=== PATIENT | female | born 1960 | race Caucasian/White ===

== ENCOUNTER 2018-11-09 09:36 | Emergency (ER) | payer SELFPAY ==
[~2018-11-09] VITALS: Ht 167.6 cm; Wt 87.5 kg
--- NOTE | 2018-11-09 11:01 | Diagnostic Imaging Report ---
Examination: CT BRAIN WITHOUT CONTRAST History:Fall with head injury Comparison studies:None Technique: Axial images were obtained from the skull base to the vertex. Coronal and sagittal images reconstructed from the axial data. Dose modulation, iterative reconstruction, and/or weight based adjustment of the mA/kV was utilized to reduce the radiation dose to as low as reasonably achievable. Intravenous contrast: None Findings: Scalp: Large right and midline posterior parietal vertex scalp hematoma. Bones: No fractures, blastic or lytic lesions. Brain sulci: Appropriate for age. Ventricles: Normal in size and configuration. No hydrocephalus. Extra-axial space: No abnormalities. Parenchyma: No abnormal densities. No masses, hemorrhage, or acute or chronic cortical based vascular insults.. Sellar/suprasellar region: No abnormalities. Craniocervical junction: Patent foramen magnum. No Chiari one malformation. Incidental findings: None. Impression: 1. Large right and midline posterior parietal vertex scalp hematoma. No associated radiopaque foreign body or calvarial fracture. 2. No acute intracranial abnormalities, specifically, no intraparenchymal or extra-axial hemorrhage. Signed by: Dr. Megan Hernandez M.D. on 11/09/2018 10:58 AM
--- NOTE | 2018-11-09 11:03 | Diagnostic Imaging Report ---
Examination: CT CERVICAL SPINE WITHOUT CONTRAST HISTORY:Neck pain. COMPARISON:None. TECHNIQUE: Multidetector helical axial images were obtained without contrast from the foramen magnum to T1. Coronal and sagittal reformatted images were done. Bone and soft tissue windows were evaluated. Dose modulation, iterative reconstruction, and/or weight based adjustment of the mA/kV was utilized to reduce the radiation dose to as low as reasonably achievable. FINDINGS: Alignment:Normal alignment and lordosis. Vertebrae: Normal height and density. No acute fracture, infection or neoplasm. Disc space heights: Normal height. Caliber of spinal canal: Developmentally normal. Posterior fossa and craniocervical junction: Foramen magnum patent. No Chiari 1 malformation. Soft tissues: Absent thyroid gland presumably from prior surgery. Degenerative changes: No disc bulge/ herniation or foraminal or canal stenosis. Visualized lung apices: There is groundglass attenuation in the partially visualized left lung apex. No abnormalities on the right. IMPRESSION: No acute abnormalities. Signed by: Dr. Megan Hernandez M.D. on 11/09/2018 11:00 AM
[2018-11-09 12:07] VITALS: BP 141/104
== END 2018-11-09 12:29 | disposition home or self-care (01) ==
LOC: ER 09:36
DX: S00.83XA Contusion of other part of head, initial encounter (principal); S00.01XA Abrasion of scalp, initial encounter; W10.8XXA Fall (on) (from) other stairs and steps, initial encounter; Y92.488 Other paved roadways as the place of occurrence of the external cause; I10 Essential (primary) hypertension; E03.9 Hypothyroidism, unspecified
CPT/HCPCS: 70450; 72125; 99284

== ENCOUNTER 2018-11-28 18:39 | Observation (INO) | payer SELFPAY ==
[~2018-11-28] VITALS: Ht 162.6 cm; Wt 79.5 kg
--- OUTSIDE RECORDS SUMMARY | 2018-11-28 18:42 | XMS REPORT ---
Author Author [facility] Address Unknown Phone Unavailable Care Team Providers Care Put In Beat Adjuster Name Role Phone Johny STEPHENS Unavailable Unavailable Problems This patient has no known problems. Allergies, Adverse Reactions, Alerts This patient has no known allergies or adverse reactions. Medications This patient has no known medications. Results Test Description Test Time Test Comments Text Results Atomic Results Result Comments CT CERVICAL SPINE WO 2018-11-09 10:58:00 [place] [address] Patient Name: ELIE BECK MR #: [id number] : 1960 Age/Sex: 58/F Req #: [id number] Adm Physician: Ordered by: ESTRELLITA STEPHENS MD Report #: [id number] Location: ER Room/Bed: Procedure: [id number] CT/CT CERVICAL SPINE WO Exam Date: 11/09/18 Exam Time: 1000 REPORT STATUS: Signed Examination: CT CERVICAL SPINE WITHOUT CONTRAST HI STORY:Neck pain. COMPARISON:None. TECHNIQUE: Multidetector helical axial images were obtained without contrast from the foramen magnum to T1. Coronal and sagittal reformatted images were done. Bone and soft tissue windows were evaluated. Dose modulation, iterative reconstruction, and/or weight based adjustment of the mA/kV was utilized to reduce the radiation dose to as low as reasonably achievable. FINDINGS: Alignment:Normal alignment and lordosis. Vertebrae: Normal height and density. No acute fracture, infection or neoplasm. Disc space heights: Normal height. Caliber of spinal canal: Developmentally normal. Posterior fossa and craniocervical junction: Foramen magnum patent. No Chiari 1 malformation. Soft tissues: Absent thyroid gland presumably from prior surgery. Degenerative changes: No disc bulge/ herniation or foraminal or canal stenosis. Visualized lung apices: There is groundglass attenuation in the partially visualized left lung apex. No abnormalities on the right. IMPRESSION: No acute abnormalities. Signed by: Dr. Megan Yepez M.D. on 11/09/2018 11:00 AM Dictated By: MEGAN CARTAGENA MD 1100 Transcribed By: SHEREE on 11/09/18 1100 COPY TO: ESTRELLITA STEPHENS MD CT BRAIN WO 2018-11-09 10:53:00 [place] [address] Patient Name: LEIE BECK MR #: [id number] : 1960 Age/Sex: 58/F Req #: [id number] Adm Physician: Ordered by: ESTRELLITA STEPHENS MD Report #: [id number] Location: ER Room/Bed: Procedure: [id number] CT/CT BRAIN WO Exam Date: 11/09/18 Exam Time: 1000 REPORT STATUS: Signed Examination: CT BRAIN WITHOUT CONTRAST History:Fall with head injury Comparison studies:None Technique: Axial images were obtained from the skull base to the vertex. Coronal and sagittal images reconstructed from the axial data. Dose modulation, iterative reconstruction, and/or weight based adjustment of the mA/kV was utilized to reduce the radiation dose to as low as reasonably achievable. Intravenous contrast: None Findings: Scalp: Large right and midline posterior parietal vertex scalp hematoma. Bones: No fractures, blastic or lytic lesions. Brain sulci: Appropriate for age. Ventricles: Normal in size and configurat ion. No hydrocephalus. Extra-axial space: No abnormalities. Parenchyma: No abnormal densities. No masses, hemorrhage, or acute or chronic cortical based vascular insults.. Sellar/suprasellar region: No abnormalities. Craniocervical junction: Patent foramen magnum. No Chiari one malformation. Incidental findings: None. Impression: 1. Large right and midline posterior parietal vertex scalp hematoma. No associated radiopaque foreign body or calvarial fracture. 2. No acute intracranial abnormalities, specifically, no intraparenchymal or extra-axial hemorrhage. Signed by: Dr. Megan Yepez M.D. on 11/09/2018 10:58 AM Dictated By: MEGAN CARTAGENA MD 1058 Transcribed By: SHEREE on 11/09/18 1058 COPY TO: ESTRELLITA STEPHENS MD
--- NOTE | 2018-11-28 19:00 | NUR ---
REPORT AND WALKING ROUNDS COMPLETED WITH ANI MORALES
[2018-11-28 19:26] LABS: BASOPHILS % 0.4 % (0.0-1.0); EOSINOPHILS # (AUTO) 0.1 (0.0-0.4); EOSINOPHILS % 2.4 % (0.0-6.0); HEMATOCRIT 33.3 % (34.2-44.1); HEMOGLOBIN 10.9 g/dL (12.0-16.0); LYMPHOCYTES # (AUTO) 1.4 (1.0-3.2); LYMPHOCYTES % 27.3 % (18.0-39.1); MEAN CORPUSCULAR HEMOGLOBIN 32.4 pg (28-32); MEAN CORPUSCULAR HGB CONC 32.7 g/dL (31-35); MEAN CORPUSCULAR VOLUME 99.1 fL (81-99); MONOCYTES # (AUTO) 0.2 (0.2-0.8); MONOCYTES % 4.6 % (4.4-11.3); NEUTROPHILS # (AUTO) 3.2 (2.1-6.9); NEUTROPHILS % 65.1 % (38.7-80.0); PLATELET COUNT 208 x10e3/uL (140-360); RED BLOOD COUNT 3.36 x10e6/uL (3.6-5.1); RED CELL DISTRIBUTION WIDTH 13.8 % (11.7-14.4)
[2018-11-28] MEDS ORDERED: PIPER-TAZ 3.375 GM 50 ML IV ONE (19:30)
[2018-11-28 19:37] LABS: ALBUMIN 4.3 g/dL (3.5-5.0); ALBUMIN/GLOBULIN RATIO 1.2 (0.8-2.0); AMPHETAMINES SCREEN,URINE NEGATIVE (NEGATIVE); ANION GAP 14.2 mmol/L (8-16); BENZODIAZEPINES SCREEN,URINE NEGATIVE (NEGATIVE); BILIRUBIN,URINE 1+ (NEGATIVE); CALCIUM 9.3 mg/dL (8.4-10.2); CLARITY,URINE HAZY (CLEAR); COLOR,URINE YELLOW (YELLOW); CREATININE, SERUM 1.29 mg/dL (0.57-1.11); KETONES,URINE NEGATIVE (NEGATIVE); LEUKOCYTE ESTERASE ,URINE NEGATIVE (NEGATIVE); NITRITE,URINE NEGATIVE (NEGATIVE); PHENCYCLIDINE SCREEN,URINE NEGATIVE (NEGATIVE); POTASSIUM 3.2 mmol/L (3.5-5.1); PROTEIN,URINE DIPSTICK 1+ (NEGATIVE); URINE UROBILINOGEN 0.2 mg/dL (0.2 - 1)
--- NOTE | 2018-11-28 19:56 | Diagnostic Imaging Report ---
EXAMINATION: Head CT without contrast. HISTORY:Fall. COMPARISON:CT brain from 11/09/2018. TECHNIQUE: Multidetector axial images were obtained from the foramen magnum to the vertex without contrast. The images were reconstructed using brain and bone algorithms. Thin section brain images were reformatted into coronal and sagittal planes. Dose modulation, iterative reconstruction, and/or weight based adjustment of the mA/kV was utilized to reduce the radiation dose to as low as reasonably achievable. Intravenous contrast: None IMAGE QUALITY: Acceptable. FINDINGS: Skull/scalp: Evolving midline and right paramedian parietal scalp edema/hematoma with approximately 2 cm soft tissue defect. No radiopaque foreign body. Minimal soft tissue air in the right parietal skull air towards the vertex. No calvarial fracture. Parenchyma: No abnormal density. No acute hemorrhage, mass or acute major vascular territorial infarct. Arteries: No density suggestive of thrombosis. Dural sinuses: No abnormal density suggestive of thrombosis. Ventricles: No hydrocephalus or displacement. Extra-axial spaces: No abnormal density. Brain volume: Normal for age. Craniocervical junction: No mass, Chiari malformation, or basilar invagination. Sella: No mass. Paranasal/mastoid sinuses: Imaged portions unremarkable. IMPRESSION: 1. Evolving midline and right paramedian parietal scalp edema/hematoma with approximately 2 cm soft tissue defect. No calvarial fracture. 2. No acute intracranial abnormality. Signed by: Dr. Elif Crocker M.D. on 11/28/2018 7:52 PM
[2018-11-28] MEDS ORDERED: ONDANSETRON HCL INJ 2MG/ML 2ML 2 MG/ML VIAL IV PRN (20:00)
[2018-11-28] MEDS ORDERED: TRAMADOL HCL 50 MG TAB PO PRN (20:00)
[2018-11-28 20:05] LABS: AMORPHOUS SEDIMENT,URINE FEW (FEW); BACTERIA,URINE FEW /HPF; EPITHELIAL CELLS,URINE MODERATE /LPF; RBC,URINE 0-5 /HPF (0-5); WBC,URINE (MAN) 0-5 /HPF (0-5)
[2018-11-28] MEDS ORDERED: VANCOMYCIN 1GM/NS 250 ML 250 ML IV ONE (20:30)
[2018-11-28] MEDS: SODIUM CHLORIDE 0.9% 1000ML 1,000 ML IV SCH (20:37)
[2018-11-28] MEDS: VANCOMYCIN 1GM/NS 250 ML 250 ML IV SCH (20:37)
[2018-11-28 21:30] VITALS: BP 137/84
--- NOTE | 2018-11-28 21:30 | NUR ---
PATIENT IS A NEW ADMIT THAT ARRIVED VIA WHEELCHAIR. PATIENT IS AWAKE AND TALKING. PATIENT HAS BEEN ASSISTED INTO THE BED. BED IS IN THE LOWEST POSITION AND CALL CONNOLLY IS WITHIN REACH. WILL CONTINUE TO MONITOR PATIENT.
[2018-11-28] MEDS: PIPER-TAZ 3.375 GM 50 ML IV SCH (23:56)
[2018-11-29] VITALS (7 sets, daily range): BP systolic 107–123; BP diastolic 62–74
--- NOTE | 2018-11-29 06:00 | NUR ---
Patient has been given a bath and now requires dressing on wound to be changed. New dressing has been applied over wound. dressing is clean, dry and intact. no complaints of pain from patient. will continue to monitor patient.
[2018-11-29] MEDS: PIPER-TAZ 3.375 GM 50 ML IV SCH ×3 (06:15→21:37)
--- NOTE | 2018-11-29 06:22 | NUR ---
attending physician notified of patient's potassium of 3.2. Physician states he will come in and address the issue when he rounds on the patient. Will continue to monitor patient.
--- NOTE | 2018-11-29 06:56 | NUR ---
report given to day nurse. patient is resting comfortably in bed. bed is in lowest position and call ng is within reach.
--- NOTE | 2018-11-29 07:12 | NUR ---
patient does not take any home medications.
[2018-11-29] MEDS: VANCOMYCIN 1GM/NS 250 ML 250 ML IV SCH ×2 (10:01→20:28)
[2018-11-29] MEDS: SODIUM CHLORIDE 0.9% 1000ML 1,000 ML IV SCH (10:06)
[2018-11-29] MEDS ORDERED: ZOLPIDEM TARTRATE 10 MG TAB PO PRN (11:00)
[2018-11-29] MEDS ORDERED: THIAMINE HCL IV SCH (11:15)
[2018-11-29] MEDS ORDERED: [UNRECOGNIZED DRUG - OTHER] IV SCH (11:15)
[2018-11-29] MEDS ORDERED: MULTIVITAMINS IV SCH (11:15)
--- NOTE | 2018-11-29 11:52 | Pre Op History & Physical ---
CHIEF COMPLAINT: Ulceration on the occiput of the scalp with cellulitis. HISTORY OF PRESENT ILLNESS: The patient is a 58-year-old woman. She fell about [id number] weeks ago and had a hematoma on her scalp. Hematoma has subsequently formed an ulceration on the back of her scalp. There is some serous drainage. She denies any fever. She is not having headaches. PAST SURGICAL HISTORY: 1. Status post breast surgery. 2. Status post . 3. Status post tonsillectomy. 4. Status post adenectomy. PAST MEDICAL HISTORY: 1. History of possible thyroid disease. 2. No prior history of diabetes. SOCIAL HISTORY: The patient is not an active smoker. She is not active drinker. FAMILY HISTORY: Family history is noncontributory. ALLERGIES: THE PATIENT IS ALLERGIC TO HYDROCODONE. REVIEW OF SYSTEMS: The patient is afebrile. She has some headache. She has ulceration in the back of her scalp. She has no headache. She does not have any sore throat. She has no neck pain. She has no chest pain. She has no difficulty breathing. She has no cough. She has no abdominal pain. She has no nausea or vomiting. She has no leg edema. PHYSICAL EXAMINATION: VITAL SIGNS: The patient is afebrile. The blood pressure is 116/74. The saturation is 97%. The pulse is 63 and respiratory rate is 18. HEENT: Shows no facial swelling or erythema. Nasal mucosa is normal. Oropharynx is normal. LYMPHATIC: Shows no submandibular, cervical or supraclavicular adenopathy. CARDIAC: Reveals regular rate and rhythm with normal S1 and S2. LUNGS: Auscultation of lungs reveals clear breath sounds bilaterally. There is no wheezing. ABDOMEN: Soft and nontender. There is no rebound or guarding. EXTREMITIES: Shows no leg edema or calf tenderness. There is no cyanosis or clubbing. SKIN: Shows no rashes. NEUROLOGICAL: Shows no focal abnormalities. RADIOGRAPHIC DATA: CT scan of the head shows a scalp hematoma with no underlying fracture. There is no parenchymal disease. LABORATORY DATA: Hemoglobin is 10.9 and white blood cell count is 4.9. Platelet count is 208. BUN to creatinine ratio was 11 to 1.29. IMPRESSION: 1. Scalp ulceration with cellulitis. 2. Anemia, unspecified. 3. Dehydration. PLAN: 1. Continue current antibiotics. 2. Wound care. 3. Monitor blood counts. 4. Vitamins. 5. Infectious Disease consultation. MD BRITTNY Donis/CHIP /[id number]
[2018-11-29] MEDS ORDERED: INFLUENZA VIRUS VAC SPLIT INJ 0.5 ML SYR IM ONE (12:00)
[2018-11-29] MEDS: THIAMINE HCL 100 MG TAB PO SCH (13:41)
--- NOTE | 2018-11-29 19:00 | NUR ---
received report from day nurse. patient is resting in bed. bed is in lowest position and call ng is within reach. will continue to monitor patient.
[2018-11-30] VITALS (8 sets, daily range): BP systolic 103–141; BP diastolic 58–78
--- NOTE | 2018-11-30 03:41 | Consultation ---
DATE OF CONSULTATION: 11/29/2018 REASON FOR CONSULTATION: Cellulitis of scalp. Thank you Dr. Bledsoe for asking me to see this patient. HISTORY OF PRESENT ILLNESS: The patient is a 58-year-old woman referred for cellulitis of scalp. She was admitted through the emergency department with nonhealing wound over the posterior scalp with infection. The patient presented to the emergency department with drainage of scalp wound. The patient fell down the stairs about 2-1/2 weeks ago and hit her head sustaining posterior scalp hematoma. She denies fever and chills. She claims that a CT scan done at the time of the accident was negative. PAST MEDICAL HISTORY: Hypertension, hypothyroidism, thyroid cancer treated with surgery and radiation, gastroesophageal reflux disease. PAST SURGICAL HISTORY: Tonsillectomy, total thyroidectomy for thyroid cancer, breast surgery, and section. ALLERGIES: HYDROCODONE. MEDICATIONS: The current antibiotics are Zosyn 3.375 g IV piggyback q.8 hours and vancomycin 1 g IV piggyback q.12 hours. IMMUNIZATIONS: Influenza vaccination has been given today. She received a tetanus vaccine in 2008. FAMILY HISTORY: Significant for epilepsy. SOCIAL HISTORY: No alcohol, tobacco, or recreational drug use. REVIEW OF SYSTEMS: As per history of present illness. PHYSICAL EXAMINATION: GENERAL: No acute distress. VITAL SIGNS: T-max 98.9, pulse rate 69, respiratory rate 18, blood pressure 122/64, weight 163 pounds. HEENT: There is a crater measuring the size of a quarter with serous discharge at the posterior scalp. There is erythema and mild tenderness of the base. There is no icterus or injection of the conjunctivae. There is no ear or nasal discharge. Moist oral mucosa. No pharyngeal erythema or exudate. NECK: Supple. No meningismus. LUNGS: Good air entry bilaterally. HEART: Normal S1 and S2. Regular. ABDOMEN: Normal bowel sounds in all quadrants. Soft, nontender. EXTREMITIES: There is no edema, clubbing, or cyanosis. SKIN: Old ecchymosis of the upper limb. DAIRY CATTLE FARM MANAGER: Awake, alert, and oriented to person, place, and time. Nonfocal. LABORATORY AND DIAGNOSTICS: On 11/28/2018, WBC 4950, hemoglobin 10.9, platelets 208,000, neutrophils 65.1, lymphocytes 27.3, monocytes 4.6, eosinophils 2.4, basophils 0.4. BUN 11, creatinine 1.29. Urine drug screen is negative. Blood culture is pending. Brain CT scan showed evolving midline and right paramedian parietal scalp edema/hematoma with approximately 2 cm soft tissue defect, no calvarial fracture and no acute intracranial abnormality. IMPRESSION: 1. Scalp wound and hematoma with surrounding cellulitis. 2. Hypothyroidism. PLAN: 1. Check vancomycin level. 2. Consult Wound Care. 3. Continue current antibiotics. Administer tetanus and diphtheria vaccine. MD SAEID Marquez/MODL /[id number]
[2018-11-30] MEDS: PIPER-TAZ 3.375 GM 50 ML IV SCH ×3 (05:00→22:39)
--- NOTE | 2018-11-30 05:16 | NUR ---
patient has a skin tear on the right forearm. when asked how it happened patients she hurt her hand while showering,. patient states skin tear is patient has a skin tear on the right forearm. when asked how it happened patient states it happened while she was in the shower and was picking at her old bruise on the hand. skin tear has been cleaned and covered with gauze. dressing is clean dry and intact.
[2018-11-30 06:08] LABS: EOSINOPHILS # (AUTO) 0.1 (0.0-0.4); EOSINOPHILS % 3.5 % (0.0-6.0); HEMATOCRIT 24.7 % (34.2-44.1); HEMOGLOBIN 8.1 g/dL (12.0-16.0); LYMPHOCYTES # (AUTO) 1.1 (1.0-3.2); LYMPHOCYTES % 33.7 % (18.0-39.1); MEAN CORPUSCULAR HEMOGLOBIN 32.8 pg (28-32); MEAN CORPUSCULAR HGB CONC 32.8 g/dL (31-35); MONOCYTES # (AUTO) 0.2 (0.2-0.8); MONOCYTES % 6.3 % (4.4-11.3); NEUTROPHILS # (AUTO) 1.7 (2.1-6.9); NEUTROPHILS % 55.2 % (38.7-80.0); PLATELET COUNT 142 x10e3/uL (140-360); RED BLOOD COUNT 2.47 x10e6/uL (3.6-5.1); RED CELL DISTRIBUTION WIDTH 13.8 % (11.7-14.4)
[2018-11-30 06:31] LABS: ALBUMIN 3.5 g/dL (3.5-5.0); ALBUMIN/GLOBULIN RATIO 1.3 (0.8-2.0); ANION GAP 11.5 mmol/L (8-16); CALCIUM 8.6 mg/dL (8.4-10.2); CREATININE, SERUM 1.25 mg/dL (0.57-1.11); POTASSIUM 3.5 mmol/L (3.5-5.1)
--- NOTE | 2018-11-30 07:10 | NUR ---
report given to day nurse. patient is resting comfortably in bed. bed is in lowest position and call ng is within reach.
[2018-11-30] MEDS: THIAMINE HCL 100 MG TAB PO SCH (08:55)
[2018-11-30] MEDS: POTASSIUM CHLORIDE 20 MEQ TAB CR PO SCH (08:55)
[2018-11-30] MEDS ORDERED: THIAMINE HCL 100 MG TAB PO SCH (09:00)
--- NOTE | 2018-11-30 09:14 | NUR ---
attempted to reach Dr Schmitt in regards to vancomycin trough level of 22.7, voicemail was left.
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
--- NOTE | 2018-11-30 14:59 | NUR ---
WOUND CARE CONSULTATION - INITIAL EVALUATION Patient admitted from home with chronic wound to occipital area that started from a fall in Nov 09 2018. Presented to ER with open ulceration to ER with foul smell and draining. LABS WBC3.15 HGB8.1 HCT24.7 ALB3.5 NEUT%55.[address] - No Mass/ Imaged portions unremarkable compared to images from 11/09/18 Blood Culture - No Growth Wound Culture - none on file Wound Care consulted for Occipital Ulcer Evaluation and Treatment Recommendation PATIENT VISIT: - Patient calm in bed in good spirits. AAOX4 - Able to get out of bed without assistance, able to ambulate to bathroom unassisted. - Giovanni Score 21 - Regular Visco Mattress - Conservative PUP Active -No pressure ulcers identified. - Bandage on head loose. Removed and has ulceration to occipital area full thickness, Periwound with dried blood, some loose necrotic tissue. At 12 o'clock area of blood clot measuring 0.4x0.4cm. Base of wound dusky moncada and palpable bone below it. - Patient states to not be applying anything at home. Decided to come in to hospital once she began to feel increased pressure at site and discomfort. 90% granular ( pale red) 10% non-viable tissue. Possibly infected ulcer, edges raised and wound is stalled. Pale reddened wound base likely with biofilm. IMPRESSION: Non-Healing Traumatic Injury to Occipital Area of Head. RECOMMENDATION: 1. Non-Healing Traumatic Injury to Occipital Area of Head: - Cleanse wound with Normal Saline and Hibiclens Soap Daily then pat dry thoroughly. - Apply Silvasorb Gel to wound bed and cover with 4x4 gauze and secure with Kerlix Bandage Daily. 2. Wound Culture for C&S and Gram Stain of Occipital Wound. Thank you for consulting with Wound Care. Addendum: 11/30/18 at 1514 by Rolo Marcelo RN Amended: Links added.
[2018-11-30] MEDS ORDERED: TETANUS/DIPHTHERIA TOX ADULT 0.5 ML SYR IM ONE (17:30)
--- NOTE | 2018-11-30 19:05 | NUR ---
rounded with power and recovery shift engineer nurse, patient aware of change and in no distress. Call ng within reach and bed in lowest position
--- NOTE | 2018-11-30 19:22 | NUR ---
Report received and walking rounds complete. Pt resting in bed watching tv and in no apparent distress. Pt head wound dressing clean, dry, intact. All safety measures ensured and call ng near.
--- NOTE | 2018-11-30 19:25 | Progress Note ---
DATE: SUBJECTIVE: The patient was seen by Infectious Disease. She is continued on IV antibiotics. She received a tetanus vaccination. She is receiving wound care. OBJECTIVE: VITAL SIGNS: The patient is afebrile. Stable. HEENT: Shows an ulceration on the occiput with some surrounding cellulitis. CARDIAC: Reveals regular rate and rhythm with normal S1 and S2. There are no murmurs or rubs. LUNGS: Auscultation of lungs reveals clear breath sounds bilaterally. ABDOMEN: Soft and nontender. There is no rebound or guarding. EXTREMITIES: Show no leg edema or calf tenderness. IMPRESSION: 1. Scalp ulceration with cellulitis. 2. Anemia, unspecified. 3. Acute kidney injury. PLAN: 1. Continue antibiotics. 2. Wound care. 3. Monitor creatinine. 4. Monitor blood counts. Van Bledsoe MD [facility]/MODL /[id number]
[2018-12-01] VITALS (8 sets, daily range): BP systolic 109–133; BP diastolic 59–78
[2018-12-01] MEDS: PIPER-TAZ 3.375 GM 50 ML IV SCH ×3 (05:55→22:53)
[2018-12-01 06:04] LABS: BASOPHILS % 0.5 % (0.0-1.0); EOSINOPHILS # (AUTO) 0.1 (0.0-0.4); EOSINOPHILS % 3.7 % (0.0-6.0); HEMATOCRIT 25.2 % (34.2-44.1); HEMOGLOBIN 8.3 g/dL (12.0-16.0); LYMPHOCYTES # (AUTO) 1.2 (1.0-3.2); LYMPHOCYTES % 33.1 % (18.0-39.1); MEAN CORPUSCULAR HEMOGLOBIN 33.3 pg (28-32); MEAN CORPUSCULAR HGB CONC 32.9 g/dL (31-35); MEAN CORPUSCULAR VOLUME 101.2 fL (81-99); MONOCYTES # (AUTO) 0.2 (0.2-0.8); MONOCYTES % 5.9 % (4.4-11.3); NEUTROPHILS # (AUTO) 2.1 (2.1-6.9); NEUTROPHILS % 56.5 % (38.7-80.0); PLATELET COUNT 133 x10e3/uL (140-360); RED BLOOD COUNT 2.49 x10e6/uL (3.6-5.1)
[2018-12-01 07:00] LABS: ALBUMIN 3.3 g/dL (3.5-5.0); ALBUMIN/GLOBULIN RATIO 1.1 (0.8-2.0); ANION GAP 10.7 mmol/L (8-16); CALCIUM 8.5 mg/dL (8.4-10.2); CREATININE, SERUM 1.3 mg/dL (0.57-1.11); POTASSIUM 3.7 mmol/L (3.5-5.1)
--- NOTE | 2018-12-01 07:00 | NUR ---
rounded with material handler 2nd shift nurse, patient aware of change and in no distress. Call ng within reach and bed in lowest position.
[2018-12-01] MEDS: THIAMINE HCL 100 MG TAB PO SCH (09:00)
[2018-12-01] MEDS: POTASSIUM CHLORIDE 20 MEQ TAB CR PO SCH (09:00)
[2018-12-01 09:40] LABS: PLATELET CLUMPS RARE; PLATELET MORPHOLOGY COMMENT NORMAL
[2018-12-01] MEDS: VANCOMYCIN 1GM/NS 250 ML 250 ML IV SCH (11:05)
--- NOTE | 2018-12-01 19:05 | NUR ---
ROUNDED WITH CATHODIC PROTECTION TECHNICIAN NURSE, PATIENT AWARE OF CHANGE. CALL CONNOLLY WITHIN REACH AND BED IN LOWEST POSITION.
--- NOTE | 2018-12-01 19:08 | NUR ---
Report received and walking rounds complete. Pt resting in bed and in no apparent distress. Pt head dressing in place, clean, dry, and intact has been changed by day shift RN. Pt has no complaints of pain. All safety measures ensured.
[2018-12-02] VITALS: BP 115/66
[2018-12-02 04:00] VITALS: BP 117/73
[2018-12-02] MEDS: PIPER-TAZ 3.375 GM 50 ML IV SCH ×2 (06:15→16:18)
--- NOTE | 2018-12-02 07:17 | NUR ---
report given and walking rounds complete. day shift RN informed of pt head dressing to be changed and supplies given to pt to take at discharge.
[2018-12-02 07:48] VITALS: BP 119/72
[2018-12-02] MEDS: THIAMINE HCL 100 MG TAB PO SCH (10:49)
[2018-12-02] MEDS: VANCOMYCIN 1GM/NS 250 ML 250 ML IV SCH (10:49)
[2018-12-02] MEDS: POTASSIUM CHLORIDE 20 MEQ TAB CR PO SCH (10:49)
[2018-12-02 10:57] VITALS: BP 119/72
[2018-12-02 11:54] VITALS: BP 113/70
--- NOTE | 2018-12-02 13:06 | NUR ---
MADE APPOINTMENT FOR PT TO GO TO [facility] FOR FOLLOW UP APPOINTMENT AT [address] [place] [address], [facility] [id number] AND TO CALL [phone] IF SHE NEEDS TO CHANGE/CANCEL APPOINTMENT. HER APPOINTMENT IS FOR Friday AT 2:15PM. SHE IS TO ARRIVE 15 TO 20 MINUTES EARLY TO GET PAPERWORK COMPLETED.
[2018-12-02 16:10] VITALS: BP 118/67
--- NOTE | 2018-12-03 14:54 | Discharge Summary ---
DISCHARGE DIAGNOSES: 1. Scalp ulceration with cellulitis. 2. Anemia, unspecified. 3. Chronic renal insufficiency, stage 3. DISCHARGE MEDICATIONS: 1. Silvadene cream and bandages. 2. Doxycycline 100 mg p.o. b.i.d. RADIOGRAPHIC DATA: CT scan of the brain and skull showed no active disease. HISTORY OF PRESENT ILLNESS: The patient is a 58-year-old woman. She fell about two and half weeks prior to admission, developed a hematoma on her occiput. The hematoma subsequently receded and formed an ulceration on the back of her scalp. She has some serous drainage, but she is not having any fever. She has no headaches. HOSPITAL COURSE: The patient was evaluated in the ER and found to have an ulceration. She had a CT scan of the head that showed no active disease. She was started on antibiotics and seen by Wound Care. Wound Care recommended Silvadene with dry dressings. Arrangements were made for the patient to receive bandages and wound care supplies at home. She will also have an appointment with the [facility] in two days. DISPOSITION: The patient is discharged home. She will follow up at the [facility]. MD BRITTNY Donis/CHIP /[id number]
== END 2018-12-02 20:05 | disposition home or self-care (01) ==
LOC: ER 18:39 → ERHOLD 20:29 → IMCU 21:38
PROVIDERS: ADMIT Internal Medicine Critical Care Medicine; ATTEND Internal Medicine Critical Care Medicine
DX: L03.811 Cellulitis of head [any part, except face] (principal); S00.03XA Contusion of scalp, initial encounter; D64.9 Anemia, unspecified; E86.0 Dehydration; Z88.5 Allergy status to narcotic agent; L98.499 Non-pressure chronic ulcer of skin of other sites with unspecified severity; N17.9 Acute kidney failure, unspecified; N18.3 Chronic kidney disease, stage 3 (moderate)
CPT/HCPCS: 36415 ×3; 70450; 80053 ×3; 80202 ×2; 80307; 81001; 85025 ×3; 87040; 87071; 87086; 87205; 90471; 90714; 96360; 96361; 99284; G0378 ×5; J2543 ×5; J3370 ×4; J3411 ×4; J7030 ×2